=== PATIENT | female | born 1995 | race African-American/Black ===

== ENCOUNTER 2019-12-05 12:53 | Emergency (ER) | payer MEDICAID ==
[~2019-12-05] VITALS: Ht 157.5 cm; Wt 118.2 kg
[2019-12-05 13:01] VITALS: Ht 157.5 cm; Wt 118.2 kg
[2019-12-05] MEDS ORDERED: STERAPRED DS 1010 MG PO (13:05)
[2019-12-05] MEDS ORDERED: HYDROXYZINE HCL50 MG PO (13:06)
[2019-12-05 14:19] VITALS: BP 150/95
== END 2019-12-05 13:55 | disposition home or self-care (01) ==
LOC: D.ER 12:53
DX: R21 Rash and other nonspecific skin eruption (principal); L25.9 Unspecified contact dermatitis, unspecified cause; L29.9 Pruritus, unspecified